=== PATIENT | female | born 1985 | race Caucasian/White ===

== ENCOUNTER → 2016-04-17 | Outpatient (CLI) | payer OTHER ==
[~2016-04-17] MED LIST: ALBUAER INH; FERR325T5 PO; IBUP-1050 PO; OXYC1TAB3 PO; PRENTAB26 PO
[2016-04-17 09:06] LABS: PREG INTERNAL NEGATIVE QC NEG CLEAR BACKGROUND; PREG INTERNAL POSITIVE QC POS CONTROL LINE
== END | disposition home or self-care (01) ==
LOC: C.LAB1850 08:13
PROVIDERS: ATTEND Obstetrics & Gynecology
DX: Z30.9 Encounter for contraceptive management, unspecified (principal)

== ENCOUNTER 2016-06-17 15:53 | Emergency (ER) | payer OTHER ==
[~2016-06-17] VITALS: Ht 152.4 cm; Wt 64.7 kg
[2016-06-17 15:57] VITALS: TEMP 36.4; Ht 152.4 cm; Wt 64.7 kg
--- NOTE | 2016-06-17 16:38 | DIAGNOSTIC IMAGING REPORT ---
LEFT SHOULDER 4 VIEWS CLINICAL HISTORY: Left shoulder pain. No history of trauma. FINDINGS: 4 views of left shoulder are obtained. No prior studies are available for comparison at the time of dictation. The skeletal structures are well mineralized. No fracture or dislocation is seen. The joint spaces are well maintained. Calcific tendinopathy is observed. The overlying soft tissues are otherwise normal in appearance. The imaged left lung parenchyma appears clear. IMPRESSION: 1. No acute bony abnormality is seen in the left shoulder. 2. There is evidence of calcific tendinopathy. Electronically signed by: Hector Crews M.D. 06/17/2016 4:37 PM Dictated Date/Time: 06/17/2016 4:36 PM
[2016-06-17] MEDS ORDERED: NAPROXEN 250 MG TAB PO STA (16:47)
[2016-06-17] MEDS ORDERED: FERR325T5 PO (17:05)
[2016-06-17] MEDS ORDERED: IBUP-1050 PO (17:05)
[2016-06-17] MEDS ORDERED: ALBUAER INH (17:05)
--- NOTE | 2016-06-17 17:18 | EMERGENCY ROOM VISIT NOTE ---
History Report prepared by Luis Miguel: Maribel Kelly Under the Supervision of: Dr. Aniket Jimenez D.O. First contact with patient: 16:03 Chief Complaint: SHOULDER PAIN Stated Complaint: LT SHOULDER PAIN History of Present Illness The patient is a 30 year old female who presents to the Emergency Room with complaints of persistent left shoulder pain that began last evening. She currently rates her discomfort as a 10/10 in severity. The patient states that she noticed the pain last evening and states that she took Ibuprofen around 0200. She states that her pain has been progressively worsening throughout the day. The patient associates a decrease in mobility of her left shoulder. She notes increased pain with movement of the left shoulder. The patient denies doing anything to injure the shoulder. She notes that she has had difficulty moving her left shoulder. The patient denies any recent tick bites. Source of History: patient Onset: last evening Position: shoulder (left) Symptom Intensity: 10/10 Timing: other (persistent) Modifying Factors (Worsening): movement (of left shoulder) Note: Associated Symptoms: decreased mobility, difficulty moving left shoulder. Review of Systems See HPI for pertinent positives & negatives. A total of 10 systems reviewed and were otherwise negative. Past Medical & Surgical Medical Problems: (1) 39 weeks gestation of (2) Term Family History Cancer Hypertension Social History Smoking Status: Former Smoker Smokeless Tobacco Use: No Alcohol Use: occasionally Marital Status: Housing Status: lives with family Occupation Status: employed Current/Historical Medications Scheduled Ferrous Sulfate (Ferrous Sulfate), 1 TAB PO DAILY Multivit/Min/Iron/Fol Ac/Pren ( Vitamin), 1 TAB PO DAILY Scheduled PRN Albuterol Sulfate (Proventil Hfa), 2 PUFF INH Q4 PRN for Wheezing Ibuprofen (Advil), 400-500 MG PO Q4 PRN for Pain Allergies Coded Allergies: Vancomycin (Verified Allergy, Mild, ITCHY, 01/06/16) Azithromycin (Verified Allergy, Unknown, ITCHY, 01/06/16) Physical Exam Vital Signs Date Time Temp Pulse Resp B/P Pulse Ox O2 Delivery O2 Flow Rate FiO2 06/17/16 15:57 36.4 83 18 148/107 97 Room Air Physical Exam CONSTITUTIONAL/VITAL SIGNS: Reviewed / noted above. GENERAL: Non-toxic in appearance. INTEGUMENTARY: Warm, dry, and [place]. HEAD: Normocephalic. EYES: without scleral icterus or trauma. ENT/OROPHARYNX: clear and moist. LYMPHADENOPATHY/NECK: Is supple without lymphadenopathy or meningismus. RESPIRATORY: Lungs clear and equal. CARDIOVASCULAR: Regular rate and rhythm. GI/ABDOMEN: Soft and nontender. No organomegaly or pulsatile mass. No rebound or guarding. Normal bowel sounds. EXTREMITIES: Mild tenderness to palpation of the left lateral shoulder. Pain increases with movement distally. Neurovascularly intact, no obvious palpable or visible abnormalities to the shoulder. BACK: No CVA tenderness. NEUROLOGICAL: Intact without focal deficits. PSYCHIATRIC: normal affect. MUSCULOSKELETAL: Normally developed with good muscle tone. Medical Decision & Procedures ER Provider Diagnostic Interpretation: X ray results and stated below per my interpretation and radiology interpretation. LEFT SHOULDER 4 VIEWS CLINICAL HISTORY: Left shoulder pain. No history of trauma. FINDINGS: 4 views of left shoulder are obtained. No prior studies are available for comparison at the time of dictation. The skeletal structures are well mineralized. No fracture or dislocation is seen. The joint spaces are well maintained. Calcific tendinopathy is observed. The overlying soft tissues are otherwise normal in appearance. The imaged left lung parenchyma appears clear. IMPRESSION: 1. No acute bony abnormality is seen in the left shoulder. 2. There is evidence of calcific tendinopathy. Electronically signed by: Hector Crews M.D. 06/17/2016 4:37 PM Dictated Date/Time: 06/17/2016 4:36 PM Medications Administered Medications (Trade) Dose Ordered Sig/Velvet Route Start Time Stop Time Status Last Admin Dose Admin Naproxen (Naprosyn Tab) 250 mg NOW STAT PO 06/17/16 16:47 06/17/16 16:48 DC 06/17/16 16:58 250 MG ED Course 1611: Previous medical records were reviewed. The patient was evaluated in room A9B. A complete history and physical examination was performed. 1647: Ordered Naproxen 250 mg PO. 1719: I reevaluated the patient and she is resting comfortably. I discussed the exam findings with her and I discussed the treatment plan. She verbalized complete understanding and agreement. She is ready to go home. 1730: ordered Oxycodone/Acetaminophen 1 homepack PO. Medical Decision Differential diagnosis: Etiologies such as fracture, dislocation, neurovascular compromise, compartment syndrome, soft tissue injury, as well as others were entertained. This is a 30-year-old female who presents to the ED with a chief complaint left shoulder pain. The patient states that her symptoms started last night. She denies any specific trauma or overuse. The patient states that her symptoms are worse with movement. She denies any fevers or other illness. No other joints are bothering her. No recent tick exposures. The exam reveals some tenderness to palpation of the left lateral shoulder. There is obvious discomfort with movement. The patient has tried ibuprofen without improvement. X-ray of the left shoulder reveals a calcific tendinitis. The patient was told the results. She is given referral to orthopedics. She was given a Percocet home pack. She is felt to be stable for discharge and outpatient follow-up. She is nursing. She was advised not to nurse while she is taking Percocet. Impression Primary Impression: Calcific tendonitis of left shoulder region Scribe Attestation The scribe's documentation has been prepared under my direction and personally reviewed by me in its entirety. I confirm that the note above accurately reflects all work, treatment, procedures, and medical decision making performed by me. Departure Information Dispostion Home / Self-Care Referrals Oscar Honeycutt III, M.D. (PCP) Clyde Galvan M.D. Forms HOME CARE DOCUMENTATION FORM, IMPORTANT VISIT INFORMATION Patient Instructions My [facility] Additional Instructions Follow-up with your doctor for further care and evaluation in 1-2 days. Return to the emergency department for worsening or new symptoms or any concerns. You have been examined and treated today on an emergency basis only. This is not a substitute for, or an effort to provide, complete comprehensive medical care. It is impossible to recognize and treat all injuries or illnesses in a single emergency department visit. It is therefore important that you follow up closely with your doctor. Call as soon as possible for an appointment. Take 1 Percocet every 6-8 hours as needed for discomfort. Avoid nursing within 6 hours of use.
[2016-06-17] MEDS ORDERED: PERCOCET HOME PACK PO ONE (17:30)
[2016-06-17 17:34] VITALS: BP 148/97; PULSE 83; O2SAT 100
[2016-06-17] MEDS ORDERED: PRENTAB26 PO (20:45)
[2016-06-17] MEDS ORDERED: OXYC1TAB3 PO (22:35)
== END 2016-06-17 17:35 | disposition home or self-care (01) ==
LOC: C.EDB 15:54 → C.EDA 17:35
DX: M75.32 Calcific tendinitis of left shoulder (principal); Z80.9 Family history of malignant neoplasm, unspecified; Z82.49 Family history of ischemic heart disease and other diseases of the circulatory system; Z87.891 Personal history of nicotine dependence

== ENCOUNTER 2016-06-17 21:20 | Emergency (ER) | payer OTHER ==
[~2016-06-17] VITALS: Ht 154.9 cm; Wt 64.6 kg
[~2016-06-17 21:20] MED LIST changes: -OXYC1TAB3 PO
[2016-06-17 21:22] VITALS: TEMP 36.7; Ht 154.9 cm; Wt 64.6 kg
[2016-06-17] MEDS ORDERED: MoRPHine SULFATE 10 MG/ML CARP/VIAL IM STA (21:54)
[2016-06-17] MEDS ORDERED: TROLAMINE SALICYLATE 10% CRM 255 APPLN/85 GM TUBE EXT STA (21:58)
[2016-06-17] MEDS ORDERED: ONDANSETRON HOME PACK 4MG OD TAB PO ONE (22:00)
[2016-06-17] MEDS ORDERED: OXYCODONE IR HOME PACK PO ONE (22:00)
[2016-06-17] MEDS ORDERED: ONDANSETRON 4MG OD TAB PO ONE (22:00)
[2016-06-17] MEDS ORDERED: OXYC1TAB3 PO (22:35)
[2016-06-17 22:45] VITALS: BP 134/89; PULSE 73; O2SAT 97
--- NOTE | 2016-06-18 03:21 | EMERGENCY ROOM VISIT NOTE ---
ED Visit Note First contact with patient: 21:38 CHIEF COMPLAINT: Shoulder pain HISTORY OF PRESENT ILLNESS: This 30-year-old patient presents to the emergency department with complaining of pain in the left shoulder past day after she woke up having pain. There is = limitation of motion of the arm because of the pain. The pain is moderate, constant and increases with motion of the hand and arm. The patient states the pain is throbbing and 7/10. The patient has taken Percocet without relief of the pain. No previous significant previous shoulder disease or injury. No numbness or tingling. no neck no back pain. No chest pain or shortness of breath. No abdominal pain or nausea/vomiting. No cough. Patient was here earlier and states the Percocet is not helping. Patient denies fevers, numbness, tingling, swelling, tick bites. REVIEW OF SYSTEMS: A 6 system review of systems was performed with positives and pertinent negatives in the HPI. ALLERGIES: Zithromax, reviewed MEDICATIONS: None PMH: None SOCIAL HISTORY: No drug use PHYSICAL EXAM: Vital Signs: Reviewed nurse's notes, vital signs stable. GENERAL : Pleasant female, in no acute distress, but appears to be in pain, well- developed, well-nourished. MUSCULOSKELETAL: There is no deformity in the contour of the left shoulder and there are no elizabeth deformities noted. There is no sulcus sign. There is tenderness over the subdeltoid bursa region. The patient's range of motion is limited secondary to pain. Supraspinatus strength 4/5. There is no clavicle tenderness. No tenderness of the humerus, elbow, wrist, or hand. Stranding Supervisor strength 5/5. Radial pulse 2+. NECK: no tenderness to palpation over the cervical spine. HEART: Regular rate and rhythm without murmurs gallops or rubs. LUNGS: Clear to auscultation bilaterally without wheezes, rales or rhonchi. No accessory muscle use. No retractions. NEURO: The patient is alert and oriented to person, place, and time. Normal sensation to light and sharp touch. Capillary refill less than 2 seconds. EMERGENCY DEPARTMENT COURSE: I examined the patient. An X-ray of the left shoulder was reviewed by myself and radiology from earlier today. LEFT SHOULDER 4 VIEWS CLINICAL HISTORY: Left shoulder pain. No history of trauma. FINDINGS: 4 views of left shoulder are obtained. No prior studies are available for comparison at the time of dictation. The skeletal structures are well mineralized. No fracture or dislocation is seen. The joint spaces are well maintained. Calcific tendinopathy is observed. The overlying soft tissues are otherwise normal in appearance. The imaged left lung parenchyma appears clear. IMPRESSION: 1. No acute bony abnormality is seen in the left shoulder. 2. There is evidence of calcific tendinopathy. Electronically signed by: Hector Crews M.D. Patient was offered further workup such as CT and laboratory workup and declined. She is requesting pain meds and would like to see orthopedics on Sunday. I felt this is reasonable. She had no signs of septic joint. There is no joint swelling. She is afebrile. She is able to move the arm and shoulder and was quite painful. She had pinpoint tenderness to the subdeltoid bursa area. She is advised to return to the ER immediately for severe pain, numbness, tingling, worsening signs or symptoms or as needed. Patient was neurovascularly and neurologic intact. She is well-appearing. She is discharged home with her driving. DIAGNOSIS: Left shoulder pain, bursitis DISCHARGE INSTRUCTIONS & TREATMENT: As below Current/Historical Medications Scheduled Ferrous Sulfate (Ferrous Sulfate), 1 TAB PO DAILY Multivit/Min/Iron/Fol Ac/Pren ( Vitamin), 1 TAB PO DAILY Scheduled PRN Albuterol Sulfate (Proventil Hfa), 2 PUFF INH Q4 PRN for Wheezing Ibuprofen (Advil), 200-600 MG PO Q4H PRN for Pain Oxycodone Immediate Rel Tab (Roxicodone Ir), 1-2 TAB PO Q4H PRN for Severe Pain Allergies Coded Allergies: Azithromycin (Verified Allergy, Severe, "RED ITCHY HIVES"., 06/17/16) Vancomycin (Verified Allergy, Severe, "RED ITCHY HIVES"., 06/17/16) Vital Signs Date Time Temp Pulse Resp B/P Pulse Ox O2 Delivery O2 Flow Rate FiO2 06/17/16 22:45 73 14 134/89 97 06/17/16 21:22 36.7 79 18 141/99 96 Room Air Medications Administered Medications (Trade) Dose Ordered Sig/Velvet Route Start Time Stop Time Status Last Admin Dose Admin Morphine Sulfate (MoRPHine SULFATE INJ) 8 mg NOW STAT IM 06/17/16 21:54 06/17/16 21:56 DC 06/17/16 22:05 8 MG Ondansetron HCl (ZOFRAN ODT 4MG Home Pack) 1 homepack UD ONCE PO 06/17/16 22:00 06/17/16 22:01 DC 06/17/16 22:05 1 HOMEPACK Ondansetron HCl (Zofran Odt) 4 mg ONE ONCE PO 06/17/16 22:00 06/17/16 22:01 DC 06/17/16 22:05 4 MG Oxycodone HCl (Roxicodone Immediate Rel 5MG Home Pack) 1 homepack UD ONCE PO 06/17/16 22:00 06/17/16 22:01 DC 06/17/16 22:04 1 HOMEPACK Trolamine Salicylate (Myoflex Cream) 1 appln NOW STAT EXT 06/17/16 21:58 06/17/16 22:00 DC 06/17/16 22:20 1 APPLN Departure Information Impression Primary Impression: Left shoulder pain Dispostion Home / Self-Care Condition GOOD Prescriptions Oxycodone Immediate Rel Tab (ROXICODONE IR) 5 Mg Tab 1-2 TAB PO Q4H Y for Severe Pain, #15 TAB Prov: Hanh Mckenzie .MITCHELL 06/17/16 Forms HOME CARE DOCUMENTATION FORM, IMPORTANT VISIT INFORMATION Patient Instructions My [facility] Additional Instructions DO NOT drive, drink alcohol, operate machinery, or perform dangerous activities today. You were given medications in the ER that can affect your ability to safely function or operate a vehicle. Oxycodone (OxyIR) 5mg: Take 1-2 pills every four hours for breakthrough pain. Avoid alcohol, operating machinery or dangerous equipment, working on ladders or roofs, DRIVING, or situations where being under the influence may be dangerous. It is recommended to use an [id number] stool softener such as Colace, 100mg twice daily while taking this medication to avoid constipation. Acetaminophen(Tylenol) may be used for fever or pain. Use 1000mg every six hours as needed. Avoid using more than 3000mg in a 24 hour period. This medication can be taken if you need to drive, work, or perform activities which may be dangerous when taking narcotic pain medication. Ice compresses for 20 minutes at a time four times daily. Use the sling as instructed. Remove your arm from the sling 4-6 times a day and move all the joints around to keep them loose. Rest and elevate your injury. . Continue current medications. Return to the ER immediately for any numbness, tingling, severe pain, extreme swelling in the extremity or as needed. Call Orthopedics tomorrow to arrange follow up for your injury.
== END 2016-06-17 22:49 | disposition home or self-care (01) ==
LOC: C.EDB 21:21 → C.EDA 22:49
DX: M25.512 Pain in left shoulder (principal); Z79.899 Other long term (current) drug therapy

== ENCOUNTER 2016-06-18 11:45 | Emergency (ER) | payer OTHER ==
[~2016-06-18 11:45] MED LIST changes: +OXYC1TAB3 PO
[2016-06-18 11:47] VITALS: TEMP 36.8
[2016-06-18] MEDS ORDERED: MoRPHine SULFATE 10 MG/ML CARP/VIAL IM STA (12:16)
[2016-06-18] MEDS ORDERED: HYDROmorphone INJ 1 MG/ML SYR IM STA (13:22)
--- NOTE | 2016-06-18 14:06 | EMERGENCY ROOM VISIT NOTE ---
History First contact with patient: 11:52 Chief Complaint: SHOULDER PAIN Stated Complaint: LEFT SHOULDER PAIN History of Present Illness The patient is a 30 year old female who presents to the Emergency Room with complaints of persistent left shoulder pain. The patient has had left shoulder pain for 3 days. She denies any injury preceding the pain. She was seen here twice yesterday and at [facility] today for the same symptoms. The patient states the pain is in the front of her shoulder and is worse with lifting her arm or any movement of the shoulder. She was initially told that an x-ray showed calcific tendinitis. She states that the morphine she was given yesterday helped, but her pain returned after a few hours. She woke up in the middle of the night in severe pain and took 3 oxycodone without relief. She states she was given a steroid injection in [place] today but this has not helped her pain. She denies any numbness or weakness in the arm. She denies any redness, swelling or fevers. She denies any chest or neck pain. Review of Systems A complete 6 point review of systems was reviewed with the patient with pertinent positives and negatives as per history of present illness. All else were negative. Past Medical/Surgical History Medical Problems: (1) 39 weeks gestation of (2) Term Family History Cancer Hypertension Social History Smoking Status: Former Smoker Alcohol Use: occasionally Marital Status: Housing Status: lives with family Occupation Status: employed Current/Historical Medications Scheduled Ferrous Sulfate (Ferrous Sulfate), 1 TAB PO DAILY Multivit/Min/Iron/Fol Ac/Pren ( Vitamin), 1 TAB PO DAILY Scheduled PRN Albuterol Sulfate (Proventil Hfa), 2 PUFF INH Q4 PRN for Wheezing Ibuprofen (Advil), 200-600 MG PO Q4H PRN for Pain Oxycodone Immediate Rel Tab (Roxicodone Ir), 1-2 TAB PO Q4H PRN for Severe Pain Allergies Coded Allergies: Azithromycin (Verified Allergy, Severe, "RED ITCHY HIVES"., 06/18/16) Vancomycin (Verified Allergy, Severe, "RED ITCHY HIVES"., 06/18/16) Physical Exam Vital Signs Date Time Temp Pulse Resp B/P Pulse Ox O2 Delivery O2 Flow Rate FiO2 06/18/16 14:11 78 16 131/81 98 Room Air 06/18/16 13:31 84 16 143/90 99 Room Air 06/18/16 11:47 36.8 96 20 160/98 99 Room Air Physical Exam VITALS: Vitals are noted on the nurse's note and reviewed by myself. Vital signs stable. GENERAL: This is a 30-year-old female, tearful, nondiaphoretic, well-developed well-nourished. SKIN: Capillary reflex less than 2 seconds. HEART: Regular rate and rhythm without murmurs gallops or rubs. LUNGS: Clear to auscultation bilaterally without wheezes, rales or rhonchi. MUSCULOSKELETAL: No deformities of the left shoulder. No erythema, bruising or edema. There is point tenderness over the left acromion process. Active range of motion is significantly limited due to patient discomfort. There is full passive range of motion. Radial pulse is 2+. NEURO: Patient was alert and oriented to person place and time. Normal sensation to light and sharp touch. Deep tendon reflexes 2+ throughout. Medical Decision & Procedures Medications Administered Medications (Trade) Dose Ordered Sig/Velvet Route Start Time Stop Time Status Last Admin Dose Admin Morphine Sulfate (MoRPHine SULFATE INJ) 6 mg NOW STAT IM 06/18/16 12:16 06/18/16 12:18 DC 06/18/16 12:22 6 MG Hydromorphone HCl (Dilaudid Inj) 1 mg NOW STAT IM 06/18/16 13:22 06/18/16 13:23 DC 06/18/16 13:29 1 MG Medical Decision Differential diagnosis includes calcific tendinitis, shoulder sprain, subacromial bursitis, rotator cuff tendinitis, rotator cuff tear, among others. The patient was evaluated as above. Pain appears to be musculoskeletal in nature as there is point tenderness over the anterior shoulder and pain worsens with any movement of the shoulder. X-rays yesterday showed calcific tendinopathy. This is the patient's fourth visit between this emergency Department and [place] emergency Department in 2 days. She is requesting an orthopedic consultation and I explained to her that this does not necessitate emergent orthopedic evaluation. She was given morphine and Dilaudid IM here with good relief of her pain. She was instructed to continue the pain medication she was previously prescribed. Case management will contact orthopedics tomorrow to make an appointment as soon as possible. The patient verbalized understanding of my assessment and treatment plan and was discharged home in good condition. Impression Primary Impression: Left shoulder pain Departure Information Dispostion Home / Self-Care Condition GOOD Referrals Oscar Honeycutt III, M.D. (PCP) Clyde Galvan M.D. Patient Instructions My [facility] Additional Instructions You have been treated in the Emergency Department for Shoulder Pain. You have received pain medicine in the emergency department which impairs your ability to operate a vehicle. It is illegal for you to drive after receiving these medicines. Continue the oxycodone as prescribed. For pain control, you can use the following [id number] medicines (if >12 yo): - Regular strength (325mg/tab) Tylenol (acetaminophen) 2 tabs every 4-6 hours as needed. Do not exceed 12 tablets in a 24 hour period. Avoid taking more than 4 grams (4000 mg) of Tylenol per day. This includes any other sources of acetaminophen you may take on a regular basis. - Regular strength (200 mg/tab) Advil (ibuprofen) 1-2 tabs every 4-6 hours as needed. Do not exceed a dose of 3200 mg per day. If this is a recent injury (<24 hrs), ice can be applied to the area of pain for the first 3 days to help decrease pain and inflammation. Case management will contact you tomorrow regarding an orthopedic appointment. Return to the Emergency Department if your current symptoms worsen despite treatment course outlined above, or if you develop any of the following symptoms : intractable pain despite aforementioned treatment course or new onset of numbness or tingling of the arm. Problem Qualifiers Primary Impression: Left shoulder pain Chronicity: acute Qualified Codes: M25.512 - Pain in left shoulder
[2016-06-18 14:11] VITALS: BP 131/81; PULSE 78; O2SAT 98
== END 2016-06-18 14:12 | disposition home or self-care (01) ==
LOC: C.EDB 11:46 → C.EDC 14:12
DX: M25.512 Pain in left shoulder (principal); M75.32 Calcific tendinitis of left shoulder; Z87.891 Personal history of nicotine dependence; Z82.49 Family history of ischemic heart disease and other diseases of the circulatory system

== ENCOUNTER → 2016-06-19 | Outpatient (CLI) | payer OTHER ==
--- NOTE | 2016-06-19 09:46 | DIAGNOSTIC IMAGING REPORT ---
LEFT SHOULDER MIN 2 VIEWS CLINICAL HISTORY: LEFT SHOULDER PAIN COMPARISON: 06/17/2016 DISCUSSION: 2 views reveal no fractures or dislocations. There is probable calcific tendinitis. IMPRESSION: Suspected calcific tendinitis. No fractures or dislocations are visualized. Electronically signed by: Joe Whitney M.D. 06/19/2016 9:44 AM Dictated Date/Time: 06/19/2016 9:43 AM
== END | disposition home or self-care (01) ==
LOC: C.RDSM 12:01
PROVIDERS: ATTEND Physician Assistant
DX: M25.512 Pain in left shoulder (principal)

== ENCOUNTER → 2017-02-14 | Outpatient (CLI) | payer OTHER ==
[~2017-02-14] MED LIST changes: -OXYC1TAB3 PO
== END | disposition home or self-care (01) ==
LOC: C.PATHSPEC 16:25
PROVIDERS: ATTEND Dermatology
DX: D24.1 Benign neoplasm of right breast (principal)

== ENCOUNTER → 2017-03-26 | Outpatient (CLI) | payer OTHER | END | disposition federal hospital, planned readmission (88) | LOC: C.PATHSPEC 17:22 | PROVIDERS: ATTEND Podiatrist Foot & Ankle Surgery | DX: B07.9 Viral wart, unspecified (principal) ==

== ENCOUNTER → 2017-06-01 | Outpatient (CLI) | payer OTHER | END | disposition home or self-care (01) | LOC: C.PAPS 12:03 | PROVIDERS: ATTEND Physician Assistant | DX: Z12.4 Encounter for screening for malignant neoplasm of cervix (principal) ==